=== PATIENT | male | born 1960 | race Caucasian/White ===

== ENCOUNTER 2020-05-24 17:37 | Inpatient (IN) | payer SELFPAY ==
[~2020-05-24] VITALS: Ht 177.8 cm; Wt 120.2 kg
[2020-05-24 19:01] LABS: RED CELL DISTRIBUTION WIDTH 12.7 % (12.1-16.2)
[2020-05-24 19:02] LABS: PLATELET COUNT 107 x10^3mcL (152-348)
[2020-05-24 19:21] LABS: CALCIUM 8.2 mg/dL (8.5-10.1); CARBON DIOXIDE 26.2 mmol/L (21-32); CHLORIDE SERUM 98 mmol/L (98-107); CREATININE SERUM 0.9 mg/dL (0.7-1.3); GFR1 > 60 mL/min; GLUCOSE SERUM 350 mg/dL (74-106); SODIUM SERUM 129 mmol/L (136-145)
[2020-05-24 19:35] LABS: ALKALINE PHOSPHATASE 72 U/L (46-116); ALT/SGPT 40 U/L (16-63); AST/SGOT 48 U/L (15-37); BILIRUBIN TOTAL 0.4 mg/dL (0.20-1.00); LACTIC DEHYDROGENASE (LDH) 544 U/L (100-190); TOTAL PROTEIN, SERUM 6.6 g/dL (6.4-8.2)
[2020-05-24 19:37] LABS: ALBUMIN 2.8 g/dL (3.4-5.0); C REACTIVE PROTEIN 19.6 mg/dL (<=0.9)
[2020-05-24 22:40] LABS: UA SPECIFIC GRAVITY 1.025 (1.005-1.035); microscopic required? YES; urine erythrocyte NEGATIVE (NEGATIVE)
[2020-05-24 22:51] LABS: AMPHETAMINE QUAL UR NONE DETECTED (See below)
[2020-05-24 23:50] LABS: CHOLESTEROL/HDL RATIO 4.2; MAGNESIUM 1.9 mg/dL (1.8-2.4); PHOSPHOROUS 3.4 mg/dL (2.5-4.9)
[2020-05-25] VITALS (7 sets, daily range): BP systolic 100–107; BP diastolic 54–67
[2020-05-25 00:14] LABS: FREE T4 1.47 ng/dL (0.76-1.46); FREE THYROXINE INDEX 3.6 ug/dL (1.4-4.5); T4(THYROXINE) 9.6 ug/dL (4.7-13.3)
[2020-05-25 00:39] LABS: T3 TOTAL 1.09 ng/mL
[2020-05-25 09:14] LABS: CALCIUM 8.2 mg/dL (8.5-10.1); CARBON DIOXIDE 20.8 mmol/L (21-32); CHLORIDE SERUM 98 mmol/L (98-107); CREATININE SERUM 0.9 mg/dL (0.7-1.3); GFR1 > 60 mL/min; GLUCOSE SERUM 411 mg/dL (74-106); MAGNESIUM 2.2 mg/dL (1.8-2.4); POTASSIUM SERUM 4.7 mmol/L (3.5-5.1); SODIUM SERUM 135 mmol/L (136-145)
[2020-05-25 10:02] LABS: C REACTIVE PROTEIN 22.6 mg/dL (<=0.9)
[2020-05-25 10:07] LABS: ERYTHROCYTE SED RATE 64 mm/hr (0-20)
[2020-05-25 10:53] LABS: BASOPHIL % 1.3 % (0.2-1.5); RED CELL DISTRIBUTION WIDTH 13.5 % (12.1-16.2)
[2020-05-25 10:55] LABS: PLATELET COUNT 112 x10^3mcL (152-348)
[2020-05-26 06:11] VITALS: BP 97/58
[2020-05-26 07:26] LABS: BASOPHIL % 0.1 % (0.2-1.5)
[2020-05-26 07:28] LABS: PLATELET COUNT 155 x10^3mcL (152-348); RED CELL DISTRIBUTION WIDTH 13.1 % (12.1-16.2)
[2020-05-26 08:00] LABS: ALKALINE PHOSPHATASE 68 U/L (46-116); ALT/SGPT 38 U/L (16-63); AST/SGOT 47 U/L (15-37); BILIRUBIN DIRECT 0.09 mg/dL (0.0-0.2); BILIRUBIN TOTAL 0.4 mg/dL (0.20-1.00); C REACTIVE PROTEIN 11.4 mg/dL (<=0.9); CARBON DIOXIDE 25.4 mmol/L (21-32); CHLORIDE SERUM 100 mmol/L (98-107); CREATININE SERUM 0.9 mg/dL (0.7-1.3); GFR1 > 60 mL/min; GLUCOSE SERUM 329 mg/dL (74-106); MAGNESIUM 2.2 mg/dL (1.8-2.4); PHOSPHOROUS 3.3 mg/dL (2.5-4.9); POTASSIUM SERUM 4.3 mmol/L (3.5-5.1); SODIUM SERUM 136 mmol/L (136-145)
[2020-05-26 08:03] LABS: ALBUMIN 2.5 g/dL (3.4-5.0); TOTAL PROTEIN, SERUM 6.1 g/dL (6.4-8.2)
[2020-05-26 08:47] VITALS: BP 94/58
[2020-05-26 13:25] VITALS: BP 106/68
[2020-05-26 17:25] VITALS: BP 97/51
[2020-05-26 20:00] VITALS: BP 116/62
[2020-05-27 05:37] VITALS: BP 11/71
[2020-05-27 07:58] LABS: BASOPHIL % 0.4 % (0.2-1.5); RED CELL DISTRIBUTION WIDTH 13.2 % (12.1-16.2)
[2020-05-27 08:25] VITALS: BP 100/55
[2020-05-27 08:28] LABS: ALKALINE PHOSPHATASE 82 U/L (46-116); ALT/SGPT 37 U/L (16-63); AST/SGOT 57 U/L (15-37); BILIRUBIN DIRECT 0.06 mg/dL (0.0-0.2); BILIRUBIN TOTAL 0.41 mg/dL (0.20-1.00); CALCIUM 8.4 mg/dL (8.5-10.1); CARBON DIOXIDE 27.6 mmol/L (21-32); CHLORIDE SERUM 104 mmol/L (98-107); CREATININE SERUM 0.8 mg/dL (0.7-1.3); GFR1 > 60 mL/min; GLUCOSE SERUM 216 mg/dL (74-106); MAGNESIUM 2.3 mg/dL (1.8-2.4); PHOSPHOROUS 3.7 mg/dL (2.5-4.9); POTASSIUM SERUM 4.1 mmol/L (3.5-5.1); SODIUM SERUM 138 mmol/L (136-145)
[2020-05-27 08:44] LABS: ALBUMIN 2.5 g/dL (3.4-5.0); TOTAL PROTEIN, SERUM 6.1 g/dL (6.4-8.2)
[2020-05-27 08:45] LABS: PLATELET COUNT 166 x10^3mcL (152-348)
[2020-05-27 12:40] VITALS: BP 117/68
[2020-05-27 17:35] VITALS: BP 130/63
[2020-05-27 19:58] VITALS: BP 120/65
[2020-05-28 05:22] VITALS: BP 102/53
[2020-05-28 05:38] LABS: BASOPHIL % 0.2 % (0.2-1.5); RED CELL DISTRIBUTION WIDTH 13.1 % (12.1-16.2)
[2020-05-28 06:11] LABS: ALKALINE PHOSPHATASE 112 U/L (46-116); ALT/SGPT 37 U/L (16-63); AST/SGOT 64 U/L (15-37); BILIRUBIN TOTAL 0.58 mg/dL (0.20-1.00); CALCIUM 8.6 mg/dL (8.5-10.1); CARBON DIOXIDE 29.4 mmol/L (21-32); CHLORIDE SERUM 106 mmol/L (98-107); CREATININE SERUM 0.8 mg/dL (0.7-1.3); GFR1 > 60 mL/min; GLUCOSE SERUM 176 mg/dL (74-106); MAGNESIUM 2.1 mg/dL (1.8-2.4); PHOSPHOROUS 3.5 mg/dL (2.5-4.9); POTASSIUM SERUM 4.1 mmol/L (3.5-5.1); SODIUM SERUM 142 mmol/L (136-145)
[2020-05-28 06:12] LABS: ALBUMIN 2.4 g/dL (3.4-5.0); TOTAL PROTEIN, SERUM 5.9 g/dL (6.4-8.2)
[2020-05-28 07:36] LABS: PLATELET COUNT 98 x10^3mcL (152-348)
[2020-05-28 08:00] VITALS: BP 91/61
[2020-05-28 11:49] VITALS: BP 101/62
[2020-05-28 15:56] VITALS: BP 102/63
[2020-05-29 05:09] VITALS: BP 91/67
[2020-05-29 07:14] LABS: BASOPHIL % 0.4 % (0.2-1.5); RED CELL DISTRIBUTION WIDTH 13.5 % (12.1-16.2)
[2020-05-29 07:57] LABS: PLATELET COUNT 74 x10^3mcL (152-348)
[2020-05-29 08:06] LABS: CALCIUM 8.2 mg/dL (8.5-10.1); CARBON DIOXIDE 27.7 mmol/L (21-32); CHLORIDE SERUM 101 mmol/L (98-107); CREATININE SERUM 0.8 mg/dL (0.7-1.3); GFR1 > 60 mL/min; GLUCOSE SERUM 192 mg/dL (74-106); MAGNESIUM 2.1 mg/dL (1.8-2.4); PHOSPHOROUS 3.7 mg/dL (2.5-4.9); POTASSIUM SERUM 4.4 mmol/L (3.5-5.1); SODIUM SERUM 138 mmol/L (136-145)
[2020-05-29 08:07] LABS: LACTIC DEHYDROGENASE (LDH) 1939 U/L (100-190)
[2020-05-29 08:12] VITALS: BP 111/63
[2020-05-29 08:22] LABS: BILIRUBIN TOTAL 0.89 mg/dL (0.20-1.00); TOTAL PROTEIN, SERUM 6.2 g/dL (6.4-8.2)
[2020-05-29 08:25] LABS: ALBUMIN 2.4 g/dL (3.4-5.0)
[2020-05-29 08:26] LABS: BILIRUBIN DIRECT 0.15 mg/dL (0.0-0.2)
[2020-05-29 08:57] LABS: C REACTIVE PROTEIN 26.6 mg/dL (<=0.9)
[2020-05-29 10:54] VITALS: BP 56/33
== END 2020-05-29 11:25 | DRG 871 ==
LOC: ED 17:37 → DU 21:44
PROVIDERS: Emergency Medicine; Internal Medicine; Internal Medicine Critical Care Medicine; ADMIT Family Medicine; ATTEND Family Medicine
PROC: XW033E5 Introduction of Remdesivir Anti-infective into Peripheral Vein, Percutaneous Approach, New Technology Group 5 (ICD-10-PCS; principal; 2020-05-25)
PROC: XW13325 Transfusion of Convalescent Plasma (Nonautologous) into Peripheral Vein, Percutaneous Approach, New Technology Group 5 (ICD-10-PCS; 2020-05-26)
PROC: 5A09357 Assistance with Respiratory Ventilation, Less than 24 Consecutive Hours, Continuous Positive Airway Pressure (ICD-10-PCS; 2020-05-29)
PROC: 5A1935Z Respiratory Ventilation, Less than 24 Consecutive Hours (ICD-10-PCS; 2020-05-29)
PROC: 0BH17EZ Insertion of Endotracheal Airway into Trachea, Via Natural or Artificial Opening (ICD-10-PCS; 2020-05-29)
PROC: 5A12012 Performance of Cardiac Output, Single, Manual (ICD-10-PCS; 2020-05-29)
DX: A41.89 Other specified sepsis (principal); U07.1 COVID-19; J12.82 Pneumonia due to coronavirus disease 2019; J96.01 Acute respiratory failure with hypoxia; E43 Unspecified severe protein-calorie malnutrition; E87.1 Hypo-osmolality and hyponatremia; Z87.891 Personal history of nicotine dependence; E11.65 Type 2 diabetes mellitus with hyperglycemia; E83.51 Hypocalcemia; I46.9 Cardiac arrest, cause unspecified
CPT/HCPCS: 36600; 82962; 83880; 84439; 85378; 87804; G0378; J0456; J0696; J1100; J1650; J1815; J1885; J2060; J2704; J3010; J3490; J3535; J7030; J7050; U0003